=== PATIENT | male | born 1955 | race Caucasian/White ===

== ENCOUNTER 2018-01-03 07:21 | Emergency (ER) | payer MEDICARE, OTHER ==
[2018-01-03] MEDS: ACETAMINOPHEN 500 MG TAB PO (08:34)
== END 2018-01-03 10:10 | disposition home or self-care (01) ==
LOC: FTE 07:21
DX: M54.5 Low back pain (principal); M79.605 Pain in left leg; N18.6 End stage renal disease; I12.0 Hypertensive chronic kidney disease with stage 5 chronic kidney disease or end stage renal disease; E11.22 Type 2 diabetes mellitus with diabetic chronic kidney disease; Z99.2 Dependence on renal dialysis
CPT/HCPCS: 72100; 72170; 73550; 73552-50; 99284-25

== ENCOUNTER 2018-12-01 14:03 | Inpatient (IN) | payer MEDICARE, OTHER ==
[2018-12-01 15:47] LABS: ADD MAN DIFF? NO
[2018-12-01 15:51] LABS: WHITE BLOOD COUNT 8.5 10^3/ul (4.8-10.8)
[2018-12-01 15:51] LABS: ABNORMAL IP MESSAGE 1; BASOPHIL # 0.1 10^3/ul (0.0-0.1); BASOPHILS % 0.6 % (0.0-2.0); EOSINOPHILS # 0.2 10^3/ul (0.0-0.5); EOSINOPHILS % 2.2 % (0.0-7.0); HEMATOCRIT 33.3 % (42.0-52.0); LYMPHOCYTES # 1.1 10^3/ul (0.8-2.9); LYMPHOCYTES % 13.4 % (15.0-51.0); MEAN CORPUSCULAR HEMOGLOBIN 33.6 pg (29.0-33.0); MEAN CORPUSCULAR VOLUME 101.8 fl (82.0-101.0); MONOCYTE # 0.8 10^3/ul (0.3-0.9); MONOCYTES % 9.8 % (0.0-11.0); NEUTROPHIL # 6.3 10^3/ul (1.6-7.5); NEUTROPHILS % 73.6 % (39.0-77.0); PLATELET COUNT 96 10^3/UL (140-415); POSITIVE DIFF @See below; RED BLOOD COUNT 3.27 10^6/ul (4.70-6.10); RED CELL DISTRIBUTION WIDTH 14.7 % (11.5-14.5)
[2018-12-01 16:05] LABS: INR 1.02; PROTIME 13.5 Sec (11.9-14.9); PT RATIO 1.1
[2018-12-01 16:06] LABS: PARTIAL THROMBOPLASTIN TIME 30.9 Sec (23.0-35.0)
[2018-12-01 16:07] LABS: ALANINE AMINOTRANSFERASE 44 IU/L (13-69); ALBUMIN 4.2 g/dl (3.3-4.9); ALKALINE PHOSPHATASE 88 IU/L (42-121); ANION GAP 16 (5-13); ASPARTATE AMINO TRANSFERASE 32 IU/L (15-46); BILIRUBIN,INDIRECT 0.2 mg/dl (0-1.1); BILIRUBIN,TOTAL 0.2 mg/dl (0.2-1.3); BLOOD UREA NITROGEN 74 mg/dl (7-20); CALCIUM 8.1 mg/dl (8.4-10.2); CARBON DIOXIDE 32 mmol/L (21-31); CHLORIDE 90 mmol/L (97-110); CREATININE 8.45 mg/dl (0.61-1.24); Estimated GFR 6 mL/min (>60); GLUCOSE 269 mg/dl (70-220); POTASSIUM 5.3 mmol/L (3.5-5.1); SODIUM 138 mmol/L (135-144); TOTAL PROTEIN 7.2 g/dl (6.1-8.1)
[2018-12-01 16:16] LABS: B-TYPE NATRIURETIC PEPTIDE 4390 PG/ML (0-125)
[2018-12-01 16:20] LABS: TROPONIN-I < 0.012 ng/ml (0.000-0.120)
[2018-12-01] MEDS: hydrALAzine 20 MG INJ IV (17:05)
[2018-12-01] MEDS ORDERED: ACETAMINOPHEN 325 MG TAB PO ×2 (17:30→20:00)
[2018-12-01] MEDS ORDERED: ONDANSETRON 4 MG INJ IV ×2 (17:30→20:00)
[2018-12-01] MEDS ORDERED: NACL 0.9% 3 ML SYG IV (20:00)
[2018-12-01 20:15] LABS: CREATINE KINASE 91 IU/L (23-200)
[2018-12-01 20:27] LABS: CK INDEX 2.5; CK-MB 2.25 ng/ml (0.0-2.4); TROPONIN-I < 0.012 ng/ml (0.000-0.120)
[2018-12-01] MEDS ORDERED: INSULIN GLARGINE [LANtus] 3 ML PEN SC (21:00)
[2018-12-01] MEDS ORDERED: glipiZIDE 10 MG TAB PO (21:00)
[2018-12-01] MEDS: DOCUSATE SODIUM 100 MG CAP PO (21:28)
[2018-12-01] MEDS: FAMOTIDINE 20 MG INJ IV (21:28)
[2018-12-01 22:08] LABS: LACTIC ACID 0.9 mmol/L (0.5-2.0)
[2018-12-02] MEDS: ACCU-CHEK XX (02:00)
[2018-12-02] MEDS ORDERED: INSULIN GLARGINE [LANTus] (100 UNITS/ML) SYG SC ×2 (02:04→21:00)
[2018-12-02 02:32] LABS: CREATINE KINASE 90 IU/L (23-200)
[2018-12-02 02:45] LABS: CK INDEX 2.7; CK-MB 2.39 ng/ml (0.0-2.4); TROPONIN-I 0.018 ng/ml (0.000-0.120)
[2018-12-02] MEDS: INSULIN GLARGINE [LANTus] (100 UNITS/ML) SYG SC ×2 (03:06→23:03)
[2018-12-02 05:13] LABS: ADD MAN DIFF? NO
[2018-12-02 05:17] LABS: WHITE BLOOD COUNT 11.7 10^3/ul (4.8-10.8)
[2018-12-02 05:17] LABS: ABNORMAL IP MESSAGE 1; BASOPHIL # 0.1 10^3/ul (0.0-0.1); BASOPHILS % 0.5 % (0.0-2.0); EOSINOPHILS # 0.3 10^3/ul (0.0-0.5); EOSINOPHILS % 2.4 % (0.0-7.0); HEMATOCRIT 34.2 % (42.0-52.0); HEMOGLOBIN 11.4 g/dl (14.0-18.0); LYMPHOCYTES # 1.1 10^3/ul (0.8-2.9); LYMPHOCYTES % 9.6 % (15.0-51.0); MEAN CORPUSCULAR HEMOGLOBIN 33.8 pg (29.0-33.0); MEAN CORPUSCULAR HGB CONC 33.3 g/dl (32.0-37.0); MEAN CORPUSCULAR VOLUME 101.5 fl (82.0-101.0); MONOCYTES % 8.5 % (0.0-11.0); NEUTROPHIL # 9.2 10^3/ul (1.6-7.5); NEUTROPHILS % 78.5 % (39.0-77.0); PLATELET COUNT 103 10^3/UL (140-415); POSITIVE DIFF @See below; RED BLOOD COUNT 3.37 10^6/ul (4.70-6.10); RED CELL DISTRIBUTION WIDTH 14.6 % (11.5-14.5)
[2018-12-02 05:32] LABS: ALANINE AMINOTRANSFERASE 34 IU/L (13-69); ALBUMIN 3.9 g/dl (3.3-4.9); ALBUMIN/GLOBULIN RATIO 1.39; ALKALINE PHOSPHATASE 90 IU/L (42-121); ANION GAP 17 (5-13); ASPARTATE AMINO TRANSFERASE 28 IU/L (15-46); BILIRUBIN,INDIRECT 0.1 mg/dl (0-1.1); BILIRUBIN,TOTAL 0.1 mg/dl (0.2-1.3); BLOOD UREA NITROGEN 98 mg/dl (7-20); CALCIUM 7.6 mg/dl (8.4-10.2); CARBON DIOXIDE 26 mmol/L (21-31); CHLORIDE 97 mmol/L (97-110); CREATININE 8.76 mg/dl (0.61-1.24); Estimated GFR 6 mL/min (>60); GLUCOSE 189 mg/dl (70-220); SODIUM 140 mmol/L (135-144); TOTAL PROTEIN 6.7 g/dl (6.1-8.1)
[2018-12-02 06:09] LABS: POTASSIUM 6.1 mmol/L (3.5-5.1)
[2018-12-02 06:56] LABS: HEMOGLOBIN A1C 7.4 % (0-5.9)
[2018-12-02] MEDS ORDERED: GLUCOSE GEL 15 GRAM TUBE BUCCAL (08:00)
[2018-12-02] MEDS ORDERED: DEXTROSE 50% 50 ML SYRINGE IV ×2 (08:00)
[2018-12-02] MEDS ORDERED: GLUCOSE GEL 15 GRAM TUBE PO ×2 (08:00)
[2018-12-02] MEDS ORDERED: GLUCAGON 1 MG INJ IM (08:00)
[2018-12-02] MEDS: NIFEdipine (XL) 60 MG TAB PO (08:07)
[2018-12-02] MEDS: DOCUSATE SODIUM 100 MG CAP PO ×2 (08:07→23:00)
[2018-12-02] MEDS: ASPIRIN 81 MG TAB PO (08:08)
[2018-12-02] MEDS: ENOXAPARIN 30 MG/0.3 ML SYG SC (08:11)
[2018-12-02] MEDS ORDERED: POTASSIUM CHLORIDE (SR) 8 MEQ CAP PO (09:00)
[2018-12-02] MEDS: INSULIN ASPART [NOVOLOG] 3 ML PEN SC ×6 (09:12→21:00)
[2018-12-02 13:33] LABS: GLUCOSE 115 mg/dl (70-220)
[2018-12-02] MEDS: NA POLYST SULFON 15 GM/60 ML BTL PO (15:19)
[2018-12-02] MEDS ORDERED: HEPARIN 1000 UNITS/ML 10 ML INJ CATHETER (16:30)
[2018-12-02] MEDS ORDERED: SODIUM CHLORIDE 0.9% 1L BAG IV (16:30)
[2018-12-02] MEDS ORDERED: ALBUMIN HUMAN 25% 100 ML IV (16:30)
[2018-12-02 17:59] LABS: HEPATITIS B SURFACE ANTIGEN NEGATIVE (NEGATIVE)
[2018-12-02 18:56] LABS: HEPATITIS B SURFACE ANTIBODY INDETERMINATE (NEGATIVE)
[2018-12-02] MEDS: FAMOTIDINE 20 MG TAB PO (21:00)
[2018-12-03] MEDS: morphine 2 MG INJ IV (01:29)
[2018-12-03] MEDS: ACCU-CHEK XX (02:34)
[2018-12-03] MEDS: INSULIN ASPART [NOVOLOG] 3 ML PEN SC ×4 (07:51→11:52)
[2018-12-03] MEDS: DOCUSATE SODIUM 100 MG CAP PO (08:26)
[2018-12-03] MEDS: FAMOTIDINE 20 MG TAB PO (08:26)
[2018-12-03] MEDS: ASPIRIN 81 MG TAB PO (08:26)
[2018-12-03] MEDS: NIFEdipine (XL) 60 MG TAB PO (08:31)
[2018-12-03] MEDS: ENOXAPARIN 30 MG/0.3 ML SYG SC (08:40)
== END 2018-12-03 14:45 | disposition home or self-care (01) | DRG 313 ==
LOC: E/R 14:03 → 6WM 17:15
PROC: 5A1D70Z Performance of Urinary Filtration, Intermittent, Less than 6 Hours Per Day (ICD-10-PCS; principal; 2018-12-02)
DX: R07.9 Chest pain, unspecified (principal); N18.6 End stage renal disease; I12.0 Hypertensive chronic kidney disease with stage 5 chronic kidney disease or end stage renal disease; E87.5 Hyperkalemia; E87.70 Fluid overload, unspecified; Z99.2 Dependence on renal dialysis; Z79.4 Long term (current) use of insulin; E11.22 Type 2 diabetes mellitus with diabetic chronic kidney disease; R51 Headache
CPT/HCPCS: 36415; 71045; 80053; 82550; 82553; 82947; 82962; 83036; 83605; 83880; 84484; 85025; 85610; 85730; 86706; 87340; 90935; 93005; 96374; 99285-25

== ENCOUNTER 2018-12-09 04:20 | Inpatient (IN) | payer MEDICARE, OTHER ==
[2018-12-09] MEDS: ONDANSETRON 4 MG INJ IV (05:07)
[2018-12-09] MEDS: HYDROmorphONE 1 MG/ML SYG IV (05:07)
[2018-12-09 05:08] LABS: ADD MAN DIFF? NO
[2018-12-09 05:16] LABS: BASOPHIL # 0.1 10^3/ul (0.0-0.1); BASOPHILS % 0.7 % (0.0-2.0); EOSINOPHILS # 0.3 10^3/ul (0.0-0.5); EOSINOPHILS % 4.1 % (0.0-7.0); HEMATOCRIT 30.1 % (42.0-52.0); LYMPHOCYTES # 1.6 10^3/ul (0.8-2.9); MEAN CORPUSCULAR HEMOGLOBIN 33.7 pg (29.0-33.0); MEAN CORPUSCULAR HGB CONC 33.2 g/dl (32.0-37.0); MEAN CORPUSCULAR VOLUME 101.3 fl (82.0-101.0); MEAN PLATELET VOLUME 13.3 fl (7.4-10.4); MONOCYTE # 0.9 10^3/ul (0.3-0.9); MONOCYTES % 11.3 % (0.0-11.0); NEUTROPHIL # 5.1 10^3/ul (1.6-7.5); NEUTROPHILS % 63.2 % (39.0-77.0); POSITIVE DIFF @See below; RED BLOOD COUNT 2.97 10^6/ul (4.70-6.10); RED CELL DISTRIBUTION WIDTH 14.9 % (11.5-14.5)
[2018-12-09 05:39] LABS: PLATELET COUNT 131 10^3/UL (140-415)
[2018-12-09] MEDS ORDERED: ACETAMINOPHEN 325 MG TAB PO (06:00)
[2018-12-09] MEDS ORDERED: ONDANSETRON 4 MG INJ IV (06:00)
[2018-12-09 06:24] LABS: ANION GAP 21 (5-13); BLOOD UREA NITROGEN 111 mg/dl (7-20); CALCIUM 7.5 mg/dl (8.4-10.2); CARBON DIOXIDE 26 mmol/L (21-31); CHLORIDE 97 mmol/L (97-110); CREATININE 10.42 mg/dl (0.61-1.24); Estimated GFR 5 mL/min (>60); GLUCOSE 99 mg/dl (70-220); SODIUM 144 mmol/L (135-144)
[2018-12-09 06:36] LABS: TROPONIN-I 0.028 ng/ml (0.000-0.120)
[2018-12-09 09:32] LABS: ANISOCYTOSIS 1+ (0-0); BAND NEUTROPHILS #M 0.1 10^3/ul (0.0-0.6); BAND NEUTROPHILS % (M) 2 % (0-4); EOSINOPHILS % (M) 5 % (0-7); GIANT THROMBO% (M) 2 % (0-0); LYMPHOCYTES #M 1.8 10^3/ul (0.8-2.9); LYMPHOCYTES % (M) 23 % (15-51); MONOCYTE #M 0.3 10^3/ul (0.3-0.9); MONOCYTES % (M) 4 % (0-11); OVALOCYTES 1+ (0-0); PLATELET ESTIMATE DECREASED; SEG NEUT #M 5.3 10^3/ul (1.6-7.5); SEGMENTED NEUTROPHILS (M) % 66 % (39-77); SMUDGE%M 16 % (0-0)
[2018-12-09] MEDS: NIFEdipine (XL) 30 MG TAB PO (12:49)
[2018-12-09] MEDS ORDERED: SODIUM CHLORIDE 0.9% 1L BAG IV (13:00)
[2018-12-09] MEDS ORDERED: ALBUMIN HUMAN 25% 100 ML IV (13:00)
[2018-12-09] MEDS ORDERED: GLUCAGON 1 MG INJ IM (14:30)
[2018-12-09] MEDS ORDERED: GLUCOSE GEL 15 GRAM TUBE BUCCAL (14:30)
[2018-12-09] MEDS ORDERED: DEXTROSE 50% 50 ML SYRINGE IV ×2 (14:30)
[2018-12-09] MEDS ORDERED: GLUCOSE GEL 15 GRAM TUBE PO (14:30)
[2018-12-09] MEDS: traMADol 50 MG TAB PO (16:01)
[2018-12-09] MEDS: DOCUSATE SODIUM 100 MG CAP PO (20:18)
[2018-12-09] MEDS: INSULIN GLARGINE [LANtus] 3 ML PEN SC (20:25)
[2018-12-09] MEDS: hydrALAzine 20 MG INJ IV (20:34)
[2018-12-09] MEDS: glipiZIDE 10 MG TAB PO (21:00)
[2018-12-09] MEDS: [UNRECOGNIZED DRUG - REMARK] XX (22:30)
[2018-12-10] MEDS: [UNRECOGNIZED DRUG - REMARK] XX (06:31)
[2018-12-10] MEDS: GLUCOSE GEL 15 GRAM TUBE PO (07:43)
[2018-12-10] MEDS: INSULIN ASPART [NOVOLOG] 3 ML PEN SC ×4 (07:46→20:47)
[2018-12-10] MEDS: ASPIRIN (EC) 81 MG TAB PO (08:21)
[2018-12-10] MEDS: DOCUSATE SODIUM 100 MG CAP PO ×2 (08:21→20:43)
[2018-12-10] MEDS: NIFEdipine (XL) 60 MG TAB PO (08:22)
[2018-12-10] MEDS: glipiZIDE 10 MG TAB PO ×2 (08:22→20:45)
[2018-12-10 13:58] LABS: ANION GAP 18 (5-13); BLOOD UREA NITROGEN 70 mg/dl (7-20); CARBON DIOXIDE 25 mmol/L (21-31); CHLORIDE 98 mmol/L (97-110); CREATININE 8.62 mg/dl (0.61-1.24); Estimated GFR 6 mL/min (>60); GLUCOSE 236 mg/dl (70-220); SODIUM 141 mmol/L (135-144)
[2018-12-10 14:09] LABS: POTASSIUM 5.7 mmol/L (3.5-5.1)
[2018-12-10] MEDS: traMADol 50 MG TAB PO (18:13)
[2018-12-10] MEDS: INSULIN GLARGINE [LANtus] 3 ML PEN SC (21:04)
[2018-12-11] MEDS: ACCU-CHEK XX (02:00)
[2018-12-11 05:42] LABS: ADD MAN DIFF? NO
[2018-12-11 05:48] LABS: ABNORMAL IP MESSAGE 1; BASOPHIL # 0.1 10^3/ul (0.0-0.1); BASOPHILS % 0.6 % (0.0-2.0); EOSINOPHILS # 0.3 10^3/ul (0.0-0.5); EOSINOPHILS % 3.4 % (0.0-7.0); HEMOGLOBIN 10.5 g/dl (14.0-18.0); LYMPHOCYTES # 1.7 10^3/ul (0.8-2.9); LYMPHOCYTES % 21.6 % (15.0-51.0); MEAN CORPUSCULAR HEMOGLOBIN 33.8 pg (29.0-33.0); MEAN CORPUSCULAR HGB CONC 33.9 g/dl (32.0-37.0); MEAN CORPUSCULAR VOLUME 99.7 fl (82.0-101.0); MEAN PLATELET VOLUME 13.7 fl (7.4-10.4); MONOCYTE # 0.8 10^3/ul (0.3-0.9); MONOCYTES % 10.1 % (0.0-11.0); NEUTROPHIL # 4.9 10^3/ul (1.6-7.5); NEUTROPHILS % 63.8 % (39.0-77.0); PLATELET COUNT 141 10^3/UL (140-415); POSITIVE DIFF @See below; RED BLOOD COUNT 3.11 10^6/ul (4.70-6.10); RED CELL DISTRIBUTION WIDTH 14.8 % (11.5-14.5)
[2018-12-11 05:48] LABS: WHITE BLOOD COUNT 7.7 10^3/ul (4.8-10.8)
[2018-12-11 06:06] LABS: MAGNESIUM 2.1 mg/dl (1.7-2.5)
[2018-12-11 06:20] LABS: ALANINE AMINOTRANSFERASE 51 IU/L (13-69); ALBUMIN/GLOBULIN RATIO 1.33; ALKALINE PHOSPHATASE 81 IU/L (42-121); ANION GAP 17 (5-13); ASPARTATE AMINO TRANSFERASE 39 IU/L (15-46); BILIRUBIN,INDIRECT 0.2 mg/dl (0-1.1); BILIRUBIN,TOTAL 0.2 mg/dl (0.2-1.3); BLOOD UREA NITROGEN 82 mg/dl (7-20); CALCIUM 7.8 mg/dl (8.4-10.2); CARBON DIOXIDE 26 mmol/L (21-31); CHLORIDE 98 mmol/L (97-110); CREATININE 10.05 mg/dl (0.61-1.24); Estimated GFR 5 mL/min (>60); GLUCOSE 60 mg/dl (70-220); POTASSIUM 5.3 mmol/L (3.5-5.1); SODIUM 141 mmol/L (135-144)
[2018-12-11] MEDS: INSULIN ASPART [NOVOLOG] 3 ML PEN SC ×4 (08:00→21:00)
[2018-12-11] MEDS: glipiZIDE 10 MG TAB PO ×2 (08:04→21:08)
[2018-12-11] MEDS: ASPIRIN (EC) 81 MG TAB PO (08:04)
[2018-12-11] MEDS: DOCUSATE SODIUM 100 MG CAP PO ×2 (08:04→21:06)
[2018-12-11] MEDS: NIFEdipine (XL) 60 MG TAB PO (08:10)
[2018-12-11] MEDS: hydrALAzine 20 MG INJ IV (08:46)
[2018-12-11] MEDS: GABAPENTIN 100 MG CAP PO ×3 (10:33→21:06)
[2018-12-11] MEDS: INSULIN GLARGINE [LANtus] 3 ML PEN SC (21:00)
[2018-12-11] MEDS: traMADol 50 MG TAB PO (22:53)
[2018-12-12] MEDS: ACCU-CHEK XX (01:23)
[2018-12-12] MEDS: INSULIN ASPART [NOVOLOG] 3 ML PEN SC ×2 (08:00→11:40)
[2018-12-12] MEDS: DOCUSATE SODIUM 100 MG CAP PO (08:10)
[2018-12-12] MEDS: ASPIRIN (EC) 81 MG TAB PO (08:11)
[2018-12-12] MEDS: NIFEdipine (XL) 60 MG TAB PO (08:11)
[2018-12-12] MEDS: GABAPENTIN 100 MG CAP PO ×2 (08:11→13:08)
[2018-12-12] MEDS: glipiZIDE 10 MG TAB PO (08:11)
== END 2018-12-12 14:56 | disposition home or self-care (01) | DRG 312 ==
LOC: 6WM 18:26 → E/R 04:20 → 6WM 05:37
PROC: 5A1D70Z Performance of Urinary Filtration, Intermittent, Less than 6 Hours Per Day (ICD-10-PCS; principal; 2018-12-09)
DX: R55 Syncope and collapse (principal); N18.6 End stage renal disease; I12.0 Hypertensive chronic kidney disease with stage 5 chronic kidney disease or end stage renal disease; E87.5 Hyperkalemia; E87.70 Fluid overload, unspecified; E11.22 Type 2 diabetes mellitus with diabetic chronic kidney disease; Z99.2 Dependence on renal dialysis; I16.0 Hypertensive urgency
CPT/HCPCS: 36415; 70450; 71045; 80048; 80053; 82962; 83735; 84484; 85025; 90935; 93005; 93306; 93880; 96374; 96375; 99285-25